=== PATIENT | male | born 1955 | race Caucasian/White ===

== ENCOUNTER 2016-08-16 10:16 | Day surgery (SDC) | payer OTHER ==
[2016-08-16] MEDS ORDERED: Propofol 200 MG/20 ML SDV ONE ×2 (10:33→11:58)
[2016-08-16] MEDS ORDERED: fentaNYL 100 MCG/2 ML SDV ONE (10:33)
[2016-08-16] MEDS ORDERED: Midazolam 1 MG/ML 2 ML SDV ONE (10:33)
[2016-08-16] MEDS ORDERED: Lactated Ringers 1,000 ML IV SCH (10:45)
[2016-08-16 12:29] VITALS: BP 106/67
--- NOTE | 2016-08-17 07:16 | OR ---
DATE OF PROCEDURE: 08/16/2016 PREOPERATIVE DIAGNOSIS: Colon cancer screening. POSTOPERATIVE DIAGNOSIS: Unremarkable colonoscopy. PROCEDURE: Colonoscopy to the cecum. ANESTHESIA: IV anesthesia with monitored anesthesia care. INDICATION: This 61-year-old white male is referred for a colonoscopy for colon cancer screening. He has never had a colonoscopic exam. I counseled him for the procedure including risks alternatives informed consent to proceed. PROCEDURE IN DETAILS: The patient was placed in the left lateral decubitus position. IV anesthesia was administered by the Anesthesia Service. Time-out was held. A rectal exam was performed, which was unremarkable. The flexible video Olympus colonoscope was introduced through his anus, up his rectum, and out of his colon all way to the cecum. Once the cecum was reached, the scope was slowly withdrawn examining the mucosa throughout. No mucosal abnormalities were noted. The scope was retroflexed in the rectum with the distal rectum appearing unremarkable. The scope was straightened and removed. He tolerated the procedure well. Donte Myers MD /[id number]
== END 2016-08-16 13:26 | disposition home or self-care (01) ==
LOC: JP.SDS 10:16
PROVIDERS: ATTEND Surgery
DX: Z12.11 Encounter for screening for malignant neoplasm of colon (principal); E11.9 Type 2 diabetes mellitus without complications; K21.9 Gastro-esophageal reflux disease without esophagitis; Z88.8 Allergy status to other drugs, medicaments and biological substances; Z79.4 Long term (current) use of insulin; F17.200 Nicotine dependence, unspecified, uncomplicated
CPT/HCPCS: 45378; J2250; J2704; J3010